=== PATIENT | female | born 1980 | race Caucasian/White ===

== ENCOUNTER 2022-10-23 17:24 | Emergency (ER) | payer OTHER ==
[~2022-10-23] VITALS: Ht 175 cm; Wt 111.0 kg
[2022-10-23 17:41] LABS: BASOPHILS % (AUTO) 0 % (0-10); EOSINOPHILS % (AUTO) 0 % (0-10); HEMATOCRIT 41 % (35-52); HEMOGLOBIN 13.5 g/dL (11.5-16.0); LYMPHOCYTES # (AUTO) 2.4 10^3/uL (1.0-4.0); LYMPHOCYTES % (AUTO) 26 % (12-44); MEAN CORPUSCULAR HEMOGLOBIN 30 pg (25-34); MEAN CORPUSCULAR HGB CONC 33 g/dL (32-36); MEAN CORPUSCULAR VOLUME 91 fL (80-99); MEAN PLATELET VOLUME 11.8 fL (9.0-12.2); MONOCYTES # (AUTO) 0.6 10^3/uL (0.0-1.0); MONOCYTES % (AUTO) 6 % (0-12); NEUTROPHILS # (AUTO) 6.2 10^3/uL (1.8-7.8); NEUTROPHILS % (AUTO) 68 % (42-75); PLATELET COUNT 240 10^3/uL (130-400); WHITE BLOOD COUNT 9.2 10^3/uL (4.3-11.0)
[2022-10-23] MEDS ORDERED: NS IV 1000 ML 1,000 ML IV STA (17:44)
[2022-10-23] MEDS ORDERED: ASPIRIN 81 MG CHEW (CHILDREN'S ASA) PO STA (17:44)
[2022-10-23 17:54] LABS: ALBUMIN 3.9 GM/DL (3.2-4.5)
--- NOTE | 2022-10-23 17:54 | ED Chest Pain ---
General Chief Complaint: Chest Pain Stated Complaint: CHEST DISCOMFORT Nursing Triage Note: PT PRESENTS TO ED WITH C/O SHAKINESS, N/V, HEARTBURN, AND CP THAT RADIATES TO BACK SINCE 0200. Source: patient Exam Limitations: no limitations (PAWAN ROSAS MD) History of Present Illness Date Seen by Provider: Oct 23, 2022 Time Seen by Provider: 17:34 Initial Comments Here with chest pain that radiates to her back that has been intermittent since 2 AM as well as shakiness and some nausea as well as heartburn. States the pain is really just in her back now. She is a little anxious currently. She is also hypertensive currently. She states she does occasionally have some anxiety and had this when she had COVID but not sustained. She did take a dose of escitalopram last night. She has tried Tums today and that did not help. She is taking kwbj-oln-gzxquzs medicine that does not help. She noted that she was little short of breath with activities today and notes new. She has not had cardiac work-up. She does not smoke. She does have family history of cardiac disease on her father side. Timing/Duration: intermittent, 12 hours Severity/Quality: moderate, aching, burning Location: central, back Radiation: no radiation Activities at Onset: none Prior CP/Workup: echocardiography ASA po W[employer] ENERGY PROJECT MANAGER: Yes (81 mg this morning) NTG SL WIND ENERGY PROJECT MANAGER: No Associated Symptoms: No abdominal pain; back pain; No dizziness; heartburn, nausea/vomiting, shortness of breath; No weakness (PAWAN ROSAS MD) Allergies and Home Medications Allergies Coded Allergies: No Known Drug Allergies (Unverified , 10/23/22) Patient Home Medication List Home Medication List Reviewed: Yes (PAWAN ROSAS MD) Review of Systems Review of Systems Constitutional: see HPI; No chills, No fever EENTM: No Symptoms Reported Respiratory: See HPI Cardiovascular: See HPI; Denies Edema; Palpitations Gastrointestinal: Nausea, Vomiting Genitourinary: No Symptoms Reported Musculoskeletal: see HPI Skin: no symptoms reported Psychiatric/Neurological: Anxiety; Denies Weakness (PAWAN ROSAS MD) Past Dqcfyxv-Tiuhuo-Brweoz Hx Patient Social History Tobacco Use?: No Substance use?: No Alcohol Use?: No Pt feels they are or have been: No (PAWAN ROSAS MD) Immunizations Up To Date Influenza Vaccine Up-to-Date: Yes; Up-to-Date (PAWAN ROSAS MD) Past Medical History Surgeries: Yes Orthopedic, Tonsillectomy Respiratory: No Cardiac: Yes Hypertension Gastrointestinal: No (PAWAN ROSAS MD) Family Medical History Reviewed Nursing Family Hx (PAWAN ROSAS MD) Physical Exam Vital Signs Vital Signs - First Documented 10/23/22 17:26 Temp 37.0 Pulse 76 Resp 20 Pulse Ox 98 O2 Delivery Room Air (NATALIE BUSTOS MD) Vital Signs Capillary Refill : Less Than 3 Seconds (PAWAN ROSAS MD) Height, Weight, BMI Height: '" Weight: lbs. oz. kg; 36.00 BMI Method: General Appearance: WD/WN, Anxious HEENT: PERRL/EOMI, Pharynx Normal Neck: Non Tender, Supple Respiratory: Lungs Clear, Normal Breath Sounds Cardiovascular: Regular Rate, Rhythm, No Murmur Gastrointestinal: Non Tender, Soft Extremity: Normal Range of Motion, Non Tender Neurologic/Psychiatric: Alert, Oriented x3 Skin: Normal Color, Warm/Dry (PAWAN ROSAS MD) Progress/Results/Core Measures Results/Orders Lab Results Laboratory Tests Test 10/23/22 17:35 10/23/22 19:30 Range/Units White Blood Count 9.2 4.3-11.0 10^3/uL Red Blood Count 4.47 3.80-5.11 10^6/uL Hemoglobin 13.5 11.5-16.0 g/dL Hematocrit 41 35-52 % Mean Corpuscular Volume 91 80-99 fL Mean Corpuscular Hemoglobin 30 25-34 pg Mean Corpuscular Hemoglobin Concent 33 32-36 g/dL Red Cell Distribution Width 12.2 10.0-14.5 % Platelet Count 240 130-400 10^3/uL Mean Platelet Volume 11.8 9.0-12.2 fL Immature Granulocyte % (Auto) 0 % Neutrophils (%) (Auto) 68 42-75 % Lymphocytes (%) (Auto) 26 12-44 % Monocytes (%) (Auto) 6 0-12 % Eosinophils (%) (Auto) 0 0-10 % Basophils (%) (Auto) 0 0-10 % Neutrophils # (Auto) 6.2 1.8-7.8 10^3/uL Lymphocytes # (Auto) 2.4 1.0-4.0 10^3/uL Monocytes # (Auto) 0.6 0.0-1.0 10^3/uL Eosinophils # (Auto) 0.0 0.0-0.3 10^3/uL Basophils # (Auto) 0.0 0.0-0.1 10^3/uL Immature Granulocyte # (Auto) 0.0 0.0-0.1 10^3/uL Prothrombin Time 13.9 12.2-14.7 SEC INR Comment 1.0 0.8-1.4 Activated Partial Thromboplast Time 31 24-35 SEC D-Dimer <= 0.27 0.00-0.49 UG/ML Sodium Level 140 135-145 MMOL/L Potassium Level 3.3 L 3.6-5.0 MMOL/L Chloride Level 109 H 98-107 MMOL/L Carbon Dioxide Level 20 L 21-32 MMOL/L Anion Gap 11 5-14 MMOL/L Blood Urea Nitrogen 11 7-18 MG/DL Creatinine 0.87 0.60-1.30 MG/DL Estimat Glomerular Filtration Rate 84 BUN/Creatinine Ratio 13 Glucose Level 94 70-105 MG/DL Calcium Level 9.4 8.5-10.1 MG/DL Corrected Calcium 9.5 8.5-10.1 MG/DL Magnesium Level 2.0 1.6-2.4 MG/DL Total Bilirubin 0.4 0.1-1.0 MG/DL Aspartate Amino Transf (AST/SGOT) 11 5-34 U/L Alanine Aminotransferase (ALT/SGPT) 16 0-55 U/L Alkaline Phosphatase 95 40-136 U/L Myoglobin 20.1 10.0-92.0 NG/ML Troponin I < 0.028 < 0.028 <0.028 NG/ML Total Protein 7.9 6.4-8.2 GM/DL Albumin 3.9 3.2-4.5 GM/DL (NATALIE BUSTOS MD) Medications Given in ED Current Medications Medications Dose Ordered Sig/John Route Start Time Stop Time Status Last Admin Dose Admin Al Hydrox/Mg Hydrox/Simethicone 30 ml ONCE ONCE PO 10/23/22 18:30 10/23/22 18:31 DC 10/23/22 18:41 30 ML Lidocaine HCl 15 ml ONCE ONCE PO 10/23/22 18:30 10/23/22 18:31 DC 10/23/22 18:41 15 ML (NATALIE BUSTOS MD) Vital Signs/I&O 10/23/22 17:26 Temp 37.0 Pulse 76 Resp 20 B/P (MAP) Pulse Ox 98 O2 Delivery Room Air (NATALIE BUSTOS MD) Progress Progress Note : Progress Note Seen and evaluated. IV, labs, EKG and chest x-ray ordered. Labs include CBC, CMP, D-dimer and troponin. ASA 324 mg p.o. ordered. Normal saline 1 L bolus ordered. Monitor patient. Differential diagnosis includes cardiac event, pulmonary embolism, electrolyte abnormality, dehydration. 1830: Labs reviewed and CBC shows no acute findings. Chemistries also show no acute findings. D-dimer and troponin are negative. I have added metoprolol 50 mg p.o. for persistent hypertension. Chest x-ray shows no acute findings on my interpretation. Pending radiology report. We will do GI cocktail as well. Given current evaluation being negative, we will initiate 2-hour rule out and repeat troponin at 1930. This was discussed with patient and family who agree. Care transferred to Dr. Bustos at this time pending repeat troponin. (PAWAN ROSAS MD) Progress Note : Time: 20:56 Progress Note Marcial was still hypertensive after receiving Toprol XL. I will prescribe Toprol XL and have advised her to monitor the trend over several days and share with her primary care provider to determine if adjustment or other medications are warranted. Her repeat troponin was reviewed by me and was negative. She denied any chest pain at the time of discharge. She did have a little bit of a headache. She did not believe the GI cocktail changed any symptoms for her, but she was experiencing any notable pain at the time of GI cocktail. See discharge instructions for further discussion. (NATALIE BUSTOS MD) Initial ECG Impression Date: Oct 23, 2022 Initial ECG Impression Time: 17:28 Initial ECG Rate: 78 Initial ECG Rhythm: Normal Sinus Comment Sinus rhythm with leftward axis. Left atrial abnormality. No evidence of ST elevation MO. Interpreted by me. (PAWAN ROSAS MD) Diagnostic Imaging Diagonstic Imaging: Xray Plain Films/CT/US/NM/MRI: chest Comments [facility]. [place], [place] NAME: MARCIAL DON [facility] REC#: [id number] PT STATUS: REG ER : 1980 PHYSICIAN: PAWAN ROSAS MD ADMIT DATE: 10/23/22/ER Signed Date of Exam:10/23/22 CHEST 1 VIEW, AP/PA ONLY INDICATION: Chest pain. FINDINGS: A calcified granuloma in the right midlung noted incidentally. No suspicious pulmonary nodule. Hilar and mediastinal contours are normal. No effusion, pneumothorax, or pneumonia. No findings of edema. IMPRESSION: Unremarkable frontal chest showed no acute-appearing abnormality. Dictated by: Dictated on workstation # [id number] Dict: 10/23/221749 Trans: 10/23/221753 [id number] [id number] Interpreted by: YULI EDDY Electronically signed by: YULI EDDY 10/23/221753 (PAWAN ROSAS MD) Departure Impression Primary Impression: Chest pain Qualified Codes: R07.9 - Chest pain, unspecified Additional Impression: Hypertension Qualified Codes: I10 - Essential (primary) hypertension Disposition: 01 HOME, SELF-CARE Condition: Improved Departure-Patient Inst. Decision time for Depature: 20:53 (NATALIE BUSTOS MD) Patient Instructions: Chest Pain, Adult ED Add. Discharge Instructions: Follow-up with your primary care provider as soon as possible. Please call tomorrow to schedule an appointment. Start Toprol-XL (metoprolol succinate) as prescribed. Monitor your blood pressures. If possible, check your blood pressures once or twice a day and share the trend with your primary care provider in follow-up. Avoid things that may unnecessarily elevate your blood pressure such as excessive stimulants like caffeine, ADD medications, diet pills, energy drinks, workout supplements, decongestant medications, excessive salt, etc. Take aspirin 81 mg daily until otherwise directed. Discuss further cardiac scre ening with your primary care provider. Referral to a press operator printing may be appropriate for further risk stratification and possibly a stress test. Return to care if you are having worsening symptoms or recurrent episodes of chest pain, uncontrolled hypertension, or other urgent issues. All discharge instructions reviewed with patient and/or family. Voiced understanding. Scripts Metoprolol Succinate (Metoprolol Succinate) 50 Mg Tab.er.24h 50 MG PO DAILY, #30 TAB Prov: NATALIE BUSTOS MD 10/23/22 PAWAN ROSAS MD Oct 23, 2022 17:53 NATALIE BUSTOS MD Oct 23, 2022 20:57
[2022-10-23 17:55] LABS: POTASSIUM 3.3 MMOL/L (3.6-5.0)
[2022-10-23 17:56] LABS: CALCIUM 9.4 MG/DL (8.5-10.1)
[2022-10-23 17:57] LABS: TOTAL PROTEIN 7.9 GM/DL (6.4-8.2)
[2022-10-23 17:59] LABS: BILIRUBIN,TOTAL 0.4 MG/DL (0.1-1.0); PROTHROMBIN TIME PATIENT 13.9 SEC (12.2-14.7)
[2022-10-23 18:01] LABS: CREATININE SERUM 0.87 MG/DL (0.60-1.30)
[2022-10-23] MEDS ORDERED: LIDOCAINE 2% VISCOUS 15 ML UDC PO ONE (18:30)
[2022-10-23] MEDS ORDERED: ANTACID SUSP 30 ML UDC (MYLANTA) PO ONE (18:30)
[2022-10-23] MEDS ORDERED: meTOproloL SUCCINATE 50 MG (TOPROL XL) TAB PO SCH (18:30)
[2022-10-23] MEDS ORDERED: METO50TA7 PO (20:58)
[2022-10-23 21:03] VITALS: BP 163/94
== END 2022-10-23 21:03 | disposition home or self-care (01) ==
LOC: ER 17:27
DX: I10 Essential (primary) hypertension (principal)
CPT/HCPCS: 36415; 71045; 80053; 83735; 83874; 84484; 85025; 85379; 85610; 85730; 93005; 93041